=== PATIENT | male | born 1955 | race Caucasian/White ===

== ENCOUNTER 2017-07-07 17:02 | Inpatient (IN) | payer OTHER ==
[2017-07-07 18:17] LABS: BASE EXCESS ABG 2 mmol/L (-3-3); HCO3 ABG 27 mmol/L (21-28); PCO2 ABG 42 mmHg (35-46); PH ABG 7.43 (7.35-7.45); PO2 ABG 104 mmHg (65-108); SAT O2 ABG 97 % (92-99)
[2017-07-07 18:21] LABS: FIO2 ABG 32
[2017-07-07 18:27] LABS: ADD MAN DIFF? NO
[2017-07-07 18:30] LABS: BASO # 0.1 x10^3/uL (0.0-0.2); BASO % 1 % (0-3); EOS # 0.1 x10^3/uL (0.0-0.7); EOS % 1 % (0-3); HEMATOCRIT 30.2 % (39.0-53.0); HEMOGLOBIN 10.4 g/dL (13.0-17.5); LYMPH % 8 % (24-48); MEAN CORPUSCULAR HEMOGLOBIN 28 pg (25-35); MEAN CORPUSCULAR HGB CONC 34 g/dL (31-37); MEAN CORPUSCULAR VOLUME 82 fL (79-100); MONO # 1.1 x10^3/uL (0.0-1.1); MONO % 9 % (0-9); NEUT # 10.3 x10^3uL (1.8-7.7); NEUT % 82 % (31-73); PLATELET COUNT 130 x10^3/uL (140-400); RED BLOOD COUNT 3.68 x10^6/uL (4.30-5.70); RED CELL DISTRIBUTION WIDTH 13.1 % (11.5-14.5); WHITE BLOOD COUNT 12.6 x10^3/uL (4.0-11.0)
[2017-07-07 18:43] LABS: ANION GAP 9 (6-14); BLOOD UREA NITROGEN 30 mg/dL (8-26); CALCIUM 8.5 mg/dL (8.5-10.1); CARBON DIOXIDE 29 mmol/L (21-32); CHLORIDE 86 mmol/L (98-107); CREATININE 1.8 mg/dL (0.7-1.3); GFR 38.2; GLUCOSE 484 mg/dL (70-99); POTASSIUM 4.5 mmol/L (3.5-5.1); SODIUM 124 mmol/L (136-145)
[2017-07-07 18:48] LABS: ALK PHOS 95 U/L (46-116); ALT (SGPT) 10 U/L (16-63); AST (SGOT) 9 U/L (15-37); DIRECT BILIRUBIN 0.2 mg/dL (0.0-0.2); LIPASE 61 U/L (73-393); MAGNESIUM 1.4 mg/dL (1.8-2.4); TOTAL BILIRUBIN 0.6 mg/dL (0.2-1.0); TOTAL PROTEIN 7.3 g/dL (6.4-8.2)
[2017-07-07] MEDS: MORPHINE SULFATE 4 MG/ML DISP.SYRIN. IV/SQ ×2 (18:51→20:13)
[2017-07-07] MEDS: IV NORMAL SALINE 1000ML BAG 1,000 ML IV ×2 (18:51→19:45)
[2017-07-07] MEDS: 0.9 % SODIUM CHLORIDE 10 ML DISP.SYRIN. IV (18:51)
[2017-07-07 18:55] LABS: LACTIC ACID 1.4 mmol/L (0.4-2.0)
[2017-07-07 18:58] LABS: NT-PRO BNP 1924 pg/mL (0-124)
[2017-07-07 18:58] LABS: CKMB MASS 2.3 ng/mL (0.0-3.6); CREATINE KINASE 49 U/L (39-308)
[2017-07-07 18:59] LABS: C-REACTIVE PROTEIN 119.7 mg/L (0-3.3)
[2017-07-07 19:03] LABS: TROPONINI < 0.017 ng/mL (0.000-0.055)
[2017-07-07 19:06] LABS: ACETONE NEG (NEG)
[2017-07-07] MEDS ORDERED: ONDANSETRON PF 4 MG/2 ML VIAL. IV (19:30)
[2017-07-07] MEDS ORDERED: VANCOMYCIN 1GM IVPB FOR OMNI 250 ML IV (19:30)
[2017-07-07 19:33] LABS: SEDIMENTATION RATE 61 (0-15)
[2017-07-07] MEDS: MORPHINE SULFATE 4 MG/ML DISP.SYRIN. IV (20:13)
[2017-07-07] MEDS: PIPERACILLIN/TAZOBACTAM 4.5 GM in IV NORMAL SALINE 100ML 100 ML IV (20:13)
[2017-07-07] MEDS: VANCOMYCIN 2 GM in IV DEXTROSE 5 %-0.45 % NACL 500 ML IV (20:13)
[2017-07-08] MEDS: INSULIN DETEMIR 300 UNITS/3 ML INSULN.PEN. SQ ×2 (00:13→21:00)
[2017-07-08 08:07] LABS: POC GLUCOSE 120 mg/dL (70-99)
[2017-07-08] MEDS: IV NORMAL SALINE 1000ML BAG 1,000 ML IV (08:46)
[2017-07-08] MEDS: MORPHINE SULFATE 4 MG/ML DISP.SYRIN. IV (08:47)
[2017-07-08] MEDS ORDERED: ALBUTEROL SULFATE 2.5 MG/3 ML NEBU. NEB (09:30)
[2017-07-08] MEDS ORDERED: PIP/TAZO PER PHARMACY MC (09:30)
[2017-07-08] MEDS ORDERED: VANCOMYCIN PER PHARMACY MC (09:30)
[2017-07-08] MEDS: oxyCODONE/APAP 7.5/325 1 TAB TABLET PO ×2 (09:48→20:49)
[2017-07-08] MEDS: SPIRONOLACTONE 25 MG TABLET PO (09:48)
[2017-07-08] MEDS: SERTRALINE 50 MG TABLET. PO (09:49)
[2017-07-08] MEDS: CARVEDILOL 3.125 MG TABLET. PO ×2 (09:49→17:51)
[2017-07-08] MEDS: POTASSIUM CHLORIDE 20 MEQ TABLET.ER. PO (09:49)
[2017-07-08] MEDS: FUROSEMIDE 80 MG TABLET. PO ×2 (09:49→15:08)
[2017-07-08] MEDS: GABAPENTIN 100 MG CAPSULE. PO ×3 (09:49→20:49)
[2017-07-08] MEDS: OXYBUTYNIN CHLORIDE 5 MG TABLET PO ×2 (09:49→20:49)
[2017-07-08] MEDS: ASPIRIN ENTERIC COATED 81 MG TABLET.DR. PO (09:49)
[2017-07-08] MEDS: LOSARTAN POTASSIUM 50 MG TABLET. PO (09:50)
[2017-07-08] MEDS ORDERED: INSULIN DETEMIR 300 UNITS/3 ML INSULN.PEN. SQ (10:00)
[2017-07-08] MEDS ORDERED: VANCOMYCIN 2 GM in IV DEXTROSE 5 %-0.45 % NACL 500 ML IV (10:00)
[2017-07-08] MEDS: PIPERACILLIN/TAZOBACTAM 3.375 GM in IV NORMAL SALINE 50ML 50 ML IV ×3 (10:28→23:22)
[2017-07-08] MEDS: INSULIN ASPART 300 UNITS/3 ML INSULN.PEN SQ ×2 (11:30→16:30)
[2017-07-08 11:54] LABS: POC GLUCOSE 62 mg/dL (70-99)
[2017-07-08 16:53] LABS: POC GLUCOSE 51 mg/dL (70-99)
[2017-07-08 17:48] LABS: POC GLUCOSE 46 mg/dL (70-99)
[2017-07-08] MEDS: DEXTROSE 50% 25 GM / 50ML DISP.SYRIN. IV (17:50)
[2017-07-08 18:06] LABS: POC GLUCOSE 128 mg/dL (70-99)
[2017-07-08] MEDS: LACTOBACILLUS RHAMNOSUS GG 1 CAPSULE. PO (20:49)
[2017-07-08] MEDS: SIMVASTATIN 40 MG TABLET. PO (20:49)
[2017-07-08 21:01] LABS: POC GLUCOSE 114 mg/dL (70-99)
[2017-07-08 21:33] LABS: COLOR,URINE RED; PROTEIN,URINE >=300 mg/dL (NEG-TRACE)
[2017-07-08 21:58] LABS: BACTERIA,URINE 0 /HPF (0-FEW); BILIRUBIN,URINE NEGATIVE (NEG); CLARITY,URINE BLOODY; GLUCOSE,URINE NEGATIVE (NEG); NITRITE,URINE NEGATIVE (NEG); PH,URINE 7.5; RBC,URINE TNTC /HPF (0-2); UROBILINOGEN,URINE 0.2 mg/dL (0.2 mg/dL)
[2017-07-09] MEDS: PIPERACILLIN/TAZOBACTAM 3.375 GM in IV NORMAL SALINE 50ML 50 ML IV ×4 (05:06→23:31)
[2017-07-09 05:40] LABS: ADD MAN DIFF? NO
[2017-07-09 05:46] LABS: BASO # 0.1 x10^3/uL (0.0-0.2); BASO % 1 % (0-3); EOS # 0.2 x10^3/uL (0.0-0.7); EOS % 2 % (0-3); HEMATOCRIT 30.8 % (39.0-53.0); HEMOGLOBIN 10.4 g/dL (13.0-17.5); LYMPH # 1.3 x10^3/uL (1.0-4.8); LYMPH % 10 % (24-48); MEAN CORPUSCULAR HEMOGLOBIN 28 pg (25-35); MEAN CORPUSCULAR HGB CONC 34 g/dL (31-37); MEAN CORPUSCULAR VOLUME 82 fL (79-100); MONO # 1.1 x10^3/uL (0.0-1.1); MONO % 8 % (0-9); NEUT # 10.8 x10^3uL (1.8-7.7); NEUT % 80 % (31-73); PLATELET COUNT 250 x10^3/uL (140-400); RED BLOOD COUNT 3.75 x10^6/uL (4.30-5.70); RED CELL DISTRIBUTION WIDTH 12.9 % (11.5-14.5); WHITE BLOOD COUNT 13.4 x10^3/uL (4.0-11.0)
[2017-07-09 06:19] LABS: ALBUMIN 2.8 g/dL (3.4-5.0); ALBUMIN/GLOBULIN RATIO 0.6 (1.0-1.7); ALK PHOS 103 U/L (46-116); ALT (SGPT) 11 U/L (16-63); ANION GAP 7 (6-14); AST (SGOT) 16 U/L (15-37); BLOOD UREA NITROGEN 26 mg/dL (8-26); BUN/CREATININE RATIO 17 (6-20); CALCIUM 8.9 mg/dL (8.5-10.1); CARBON DIOXIDE 34 mmol/L (21-32); CHLORIDE 91 mmol/L (98-107); CREATININE 1.5 mg/dL (0.7-1.3); GFR 47.1; GLUCOSE 73 mg/dL (70-99); POTASSIUM 3.4 mmol/L (3.5-5.1); SODIUM 132 mmol/L (136-145); TOTAL BILIRUBIN 0.5 mg/dL (0.2-1.0); TOTAL PROTEIN 7.3 g/dL (6.4-8.2)
[2017-07-09] MEDS: oxyCODONE/APAP 7.5/325 1 TAB TABLET PO ×2 (06:37→20:47)
[2017-07-09 06:50] LABS: INR 6.1 (0.8-1.1)
[2017-07-09] MEDS: ASPIRIN ENTERIC COATED 81 MG TABLET.DR. PO (07:08)
[2017-07-09] MEDS: INSULIN ASPART 300 UNITS/3 ML INSULN.PEN SQ ×3 (07:30→16:30)
[2017-07-09 07:46] LABS: POC GLUCOSE 99 mg/dL (70-99)
[2017-07-09] MEDS ORDERED: ONDANSETRON ODT 4 MG TAB.RAPDIS. PO (08:15)
[2017-07-09] MEDS: LOSARTAN POTASSIUM 50 MG TABLET. PO ×2 (09:00→09:21)
[2017-07-09] MEDS: OXYBUTYNIN CHLORIDE 5 MG TABLET PO ×2 (09:21→20:47)
[2017-07-09] MEDS: SERTRALINE 50 MG TABLET. PO (09:21)
[2017-07-09] MEDS: POTASSIUM CHLORIDE 20 MEQ TABLET.ER. PO (09:21)
[2017-07-09] MEDS: LACTOBACILLUS RHAMNOSUS GG 1 CAPSULE. PO ×2 (09:21→20:47)
[2017-07-09] MEDS: SPIRONOLACTONE 25 MG TABLET PO (09:21)
[2017-07-09] MEDS: FUROSEMIDE 80 MG TABLET. PO ×2 (09:21→14:36)
[2017-07-09] MEDS: GABAPENTIN 100 MG CAPSULE. PO ×3 (09:22→20:47)
[2017-07-09] MEDS: CARVEDILOL 3.125 MG TABLET. PO ×2 (09:22→17:00)
[2017-07-09 11:47] LABS: POC GLUCOSE 218 mg/dL (70-99)
[2017-07-09] MEDS: TAMSULOSIN 0.4 MG CAP.ER.24H. PO (12:04)
[2017-07-09] MEDS: PHYTONADIONE 10 MG/ML AMPUL. SQ (12:05)
[2017-07-09 16:40] LABS: POC GLUCOSE 136 mg/dL (70-99)
[2017-07-09 20:41] LABS: POC GLUCOSE 136 mg/dL (70-99)
[2017-07-09] MEDS: SIMVASTATIN 40 MG TABLET. PO (20:47)
[2017-07-09] MEDS: INSULIN DETEMIR 300 UNITS/3 ML INSULN.PEN. SQ (21:00)
[2017-07-10] MEDS: oxyCODONE/APAP 7.5/325 1 TAB TABLET PO ×3 (02:33→20:04)
[2017-07-10] MEDS: PIPERACILLIN/TAZOBACTAM 3.375 GM in IV NORMAL SALINE 50ML 50 ML IV ×4 (05:41→23:36)
[2017-07-10 05:44] LABS: ANION GAP 8 (6-14); BLOOD UREA NITROGEN 19 mg/dL (8-26); CALCIUM 8.1 mg/dL (8.5-10.1); CARBON DIOXIDE 32 mmol/L (21-32); CHLORIDE 87 mmol/L (98-107); CREATININE 1.2 mg/dL (0.7-1.3); GLUCOSE 186 mg/dL (70-99); PHOSPHORUS 3.7 mg/dL (2.6-4.7); POTASSIUM 3.7 mmol/L (3.5-5.1); SODIUM 127 mmol/L (136-145)
[2017-07-10 06:05] LABS: INR 2.3 (0.8-1.1); PROTHROMBIN TIME PATIENT 24.6 SEC (11.7-14.0)
[2017-07-10 08:29] LABS: POC GLUCOSE 215 mg/dL (70-99)
[2017-07-10] MEDS: FUROSEMIDE 80 MG TABLET. PO ×2 (08:35→13:20)
[2017-07-10] MEDS: GABAPENTIN 100 MG CAPSULE. PO ×3 (08:35→20:03)
[2017-07-10] MEDS: LACTOBACILLUS RHAMNOSUS GG 1 CAPSULE. PO ×2 (08:35→20:03)
[2017-07-10] MEDS: SPIRONOLACTONE 25 MG TABLET PO (08:35)
[2017-07-10] MEDS: POTASSIUM CHLORIDE 20 MEQ TABLET.ER. PO (08:36)
[2017-07-10] MEDS: TAMSULOSIN 0.4 MG CAP.ER.24H. PO (08:36)
[2017-07-10] MEDS: OXYBUTYNIN CHLORIDE 5 MG TABLET PO ×2 (08:36→20:03)
[2017-07-10] MEDS: LOSARTAN POTASSIUM 50 MG TABLET. PO (08:36)
[2017-07-10] MEDS: SERTRALINE 50 MG TABLET. PO (08:36)
[2017-07-10] MEDS: CARVEDILOL 3.125 MG TABLET. PO ×3 (08:37→17:05)
[2017-07-10] MEDS: INSULIN ASPART 300 UNITS/3 ML INSULN.PEN SQ ×3 (08:41→17:14)
[2017-07-10] MEDS: NEOMY/BACITR/POLYMYXIN OINT PACKET. TP (11:00)
[2017-07-10 11:35] LABS: POC GLUCOSE 293 mg/dL (70-99)
[2017-07-10] MEDS: MAGNESIUM OXIDE 400 MG TABLET PO ×2 (12:05→20:03)
[2017-07-10] MEDS: IV NORMAL SALINE 1000ML BAG 1,000 ML IV ×2 (12:05→20:06)
[2017-07-10] MEDS: ASCORBIC ACID 500 MG TABLET PO (12:05)
[2017-07-10] MEDS: MAGNESIUM SULFATE 4GM 100 ML IV (13:21)
[2017-07-10 16:39] LABS: POC GLUCOSE 297 mg/dL (70-99)
[2017-07-10] MEDS: MORPHINE SULFATE 4 MG/ML DISP.SYRIN. IV (17:05)
[2017-07-10] MEDS: ONDANSETRON PF 4 MG/2 ML VIAL. IV (18:25)
[2017-07-10] MEDS: SIMVASTATIN 40 MG TABLET. PO (20:04)
[2017-07-10 20:25] LABS: POC GLUCOSE 229 mg/dL (70-99)
[2017-07-10] MEDS: INSULIN DETEMIR 300 UNITS/3 ML INSULN.PEN. SQ (20:32)
[2017-07-11] MEDS: oxyCODONE/APAP 7.5/325 1 TAB TABLET PO ×2 (05:05→13:59)
[2017-07-11] MEDS: PIPERACILLIN/TAZOBACTAM 3.375 GM in IV NORMAL SALINE 50ML 50 ML IV ×4 (05:06→23:36)
[2017-07-11 05:09] LABS: ADD MAN DIFF? NO
[2017-07-11] MEDS: IV NORMAL SALINE 1000ML BAG 1,000 ML IV ×2 (05:09→17:14)
[2017-07-11 05:21] LABS: BASO # 0.1 x10^3/uL (0.0-0.2); BASO % 0 % (0-3); EOS # 0.2 x10^3/uL (0.0-0.7); EOS % 2 % (0-3); HEMATOCRIT 23.9 % (39.0-53.0); LYMPH # 1.1 x10^3/uL (1.0-4.8); LYMPH % 8 % (24-48); MEAN CORPUSCULAR HEMOGLOBIN 27 pg (25-35); MEAN CORPUSCULAR HGB CONC 33 g/dL (31-37); MEAN CORPUSCULAR VOLUME 82 fL (79-100); MONO # 0.9 x10^3/uL (0.0-1.1); MONO % 7 % (0-9); NEUT % 83 % (31-73); PLATELET COUNT 200 x10^3/uL (140-400); WHITE BLOOD COUNT 13.3 x10^3/uL (4.0-11.0)
[2017-07-11 05:31] LABS: INR 1.4 (0.8-1.1); PROTHROMBIN TIME PATIENT 16.4 SEC (11.7-14.0)
[2017-07-11 05:44] LABS: ANION GAP 2 (6-14); BLOOD UREA NITROGEN 15 mg/dL (8-26); CALCIUM 8.5 mg/dL (8.5-10.1); CARBON DIOXIDE 37 mmol/L (21-32); CHLORIDE 92 mmol/L (98-107); CREATININE 1.2 mg/dL (0.7-1.3); GLUCOSE 213 mg/dL (70-99); MAGNESIUM 1.8 mg/dL (1.8-2.4); POTASSIUM 3.8 mmol/L (3.5-5.1); SODIUM 131 mmol/L (136-145)
[2017-07-11 07:36] LABS: THYROID STIM HORMONE (TSH) 2.629 uIU/mL (0.358-3.74)
[2017-07-11] MEDS: CARVEDILOL 3.125 MG TABLET. PO ×2 (08:00→17:14)
[2017-07-11 08:02] LABS: POC GLUCOSE 150 mg/dL (70-99)
[2017-07-11] MEDS: LACTOBACILLUS RHAMNOSUS GG 1 CAPSULE. PO ×2 (08:11→20:52)
[2017-07-11] MEDS: OXYBUTYNIN CHLORIDE 5 MG TABLET PO ×2 (08:11→20:52)
[2017-07-11] MEDS: TAMSULOSIN 0.4 MG CAP.ER.24H. PO (08:11)
[2017-07-11] MEDS: LOSARTAN POTASSIUM 50 MG TABLET. PO (08:11)
[2017-07-11] MEDS: ASCORBIC ACID 500 MG TABLET PO (08:11)
[2017-07-11] MEDS: GABAPENTIN 100 MG CAPSULE. PO ×3 (08:11→20:52)
[2017-07-11] MEDS: FUROSEMIDE 80 MG TABLET. PO ×2 (08:12→13:59)
[2017-07-11] MEDS: POTASSIUM CHLORIDE 20 MEQ TABLET.ER. PO (08:12)
[2017-07-11] MEDS: MAGNESIUM OXIDE 400 MG TABLET PO ×2 (08:12→20:53)
[2017-07-11] MEDS: SPIRONOLACTONE 25 MG TABLET PO (08:13)
[2017-07-11] MEDS: INSULIN ASPART 300 UNITS/3 ML INSULN.PEN SQ ×3 (08:19→17:18)
[2017-07-11] MEDS: SERTRALINE 50 MG TABLET. PO (09:43)
[2017-07-11] MEDS ORDERED: CONTRAST GIVEN MC (11:15)
[2017-07-11] MEDS: IOHEXOL 300 MG/ML 100ML VIAL. IV (11:27)
[2017-07-11 12:01] LABS: POC GLUCOSE 155 mg/dL (70-99)
[2017-07-11 16:54] LABS: POC GLUCOSE 144 mg/dL (70-99)
[2017-07-11 20:42] LABS: POC GLUCOSE 115 mg/dL (70-99)
[2017-07-11] MEDS: SIMVASTATIN 40 MG TABLET. PO (20:53)
[2017-07-11] MEDS: INSULIN DETEMIR 300 UNITS/3 ML INSULN.PEN. SQ (20:58)
[2017-07-12 03:29] LABS: ADD MAN DIFF? NO
[2017-07-12 03:38] LABS: BASO # 0.1 x10^3/uL (0.0-0.2); BASO % 0 % (0-3); EOS # 0.2 x10^3/uL (0.0-0.7); EOS % 1 % (0-3); HEMATOCRIT 24.9 % (39.0-53.0); HEMOGLOBIN 8.3 g/dL (13.0-17.5); LYMPH # 1.3 x10^3/uL (1.0-4.8); LYMPH % 9 % (24-48); MEAN CORPUSCULAR HEMOGLOBIN 27 pg (25-35); MEAN CORPUSCULAR HGB CONC 33 g/dL (31-37); MEAN CORPUSCULAR VOLUME 82 fL (79-100); MONO # 1.1 x10^3/uL (0.0-1.1); MONO % 8 % (0-9); NEUT # 11.6 x10^3uL (1.8-7.7); NEUT % 82 % (31-73); PLATELET COUNT 170 x10^3/uL (140-400); RED BLOOD COUNT 3.02 x10^6/uL (4.30-5.70); RED CELL DISTRIBUTION WIDTH 12.9 % (11.5-14.5); WHITE BLOOD COUNT 14.2 x10^3/uL (4.0-11.0)
[2017-07-12 03:48] LABS: ANION GAP 3 (6-14); BLOOD UREA NITROGEN 13 mg/dL (8-26); CALCIUM 8.3 mg/dL (8.5-10.1); CARBON DIOXIDE 35 mmol/L (21-32); CHLORIDE 92 mmol/L (98-107); CREATININE 1.1 mg/dL (0.7-1.3); GFR 67.4; GLUCOSE 174 mg/dL (70-99); MAGNESIUM 1.4 mg/dL (1.8-2.4); POTASSIUM 3.6 mmol/L (3.5-5.1); SODIUM 130 mmol/L (136-145)
[2017-07-12] MEDS: IV NORMAL SALINE 1000ML BAG 1,000 ML IV ×3 (05:15→23:21)
[2017-07-12] MEDS: PIPERACILLIN/TAZOBACTAM 3.375 GM in IV NORMAL SALINE 50ML 50 ML IV ×4 (05:15→23:21)
[2017-07-12] MEDS ORDERED: MORPHINE SULFATE 4 MG/ML DISP.SYRIN. IV (07:00)
[2017-07-12] MEDS ORDERED: fentaNYL PF VIAL 100 MCG/2 ML VIAL IV ×2 (07:00)
[2017-07-12] MEDS ORDERED: ONDANSETRON PF 4 MG/2 ML VIAL. IV (07:00)
[2017-07-12] MEDS: IV RINGERS,LACTATED 1000ML 1,000 ML IV (07:00)
[2017-07-12] MEDS ORDERED: LIDOCAINE 1% PF 2 ML VIAL. ID (07:00)
[2017-07-12] MEDS ORDERED: PROCHLORPERAZINE 10 MG/2 ML VIAL. IV (07:00)
[2017-07-12] MEDS ORDERED: LIDOCAINE 1% PF 5 ML VIAL. (07:02)
[2017-07-12] MEDS ORDERED: fentaNYL PF VIAL 100 MCG/2 ML VIAL (07:02)
[2017-07-12] MEDS ORDERED: PROPOFOL 20 ML IV (07:02)
[2017-07-12] MEDS: INSULIN ASPART 300 UNITS/3 ML INSULN.PEN SQ ×3 (07:30→17:10)
[2017-07-12 07:39] LABS: POC GLUCOSE 81 mg/dL (70-99)
[2017-07-12] MEDS: LIDOCAINE 1% 20 ML VIAL. ×2 (08:06→08:17)
[2017-07-12 08:41] LABS: POC GLUCOSE 69 mg/dL (70-99)
[2017-07-12 09:44] LABS: POC GLUCOSE 54 mg/dL (70-99)
[2017-07-12] MEDS: DEXTROSE 50% 25 GM / 50ML DISP.SYRIN. IV (09:44)
[2017-07-12 10:02] LABS: POC GLUCOSE 128 mg/dL (70-99)
[2017-07-12] MEDS: ASCORBIC ACID 500 MG TABLET PO (10:11)
[2017-07-12] MEDS: LACTOBACILLUS RHAMNOSUS GG 1 CAPSULE. PO ×2 (10:11→20:48)
[2017-07-12] MEDS: GABAPENTIN 100 MG CAPSULE. PO ×3 (10:12→20:48)
[2017-07-12] MEDS: OXYBUTYNIN CHLORIDE 5 MG TABLET PO ×2 (10:13→20:48)
[2017-07-12] MEDS: LOSARTAN POTASSIUM 50 MG TABLET. PO (10:13)
[2017-07-12] MEDS: SPIRONOLACTONE 25 MG TABLET PO (10:13)
[2017-07-12] MEDS: CARVEDILOL 3.125 MG TABLET. PO ×2 (10:14→17:03)
[2017-07-12] MEDS: FUROSEMIDE 80 MG TABLET. PO ×2 (10:14→17:03)
[2017-07-12] MEDS: TAMSULOSIN 0.4 MG CAP.ER.24H. PO (10:14)
[2017-07-12] MEDS: MAGNESIUM OXIDE 400 MG TABLET PO ×2 (10:14→20:48)
[2017-07-12] MEDS: SERTRALINE 50 MG TABLET. PO (10:14)
[2017-07-12] MEDS: POTASSIUM CHLORIDE 20 MEQ TABLET.ER. PO (10:15)
[2017-07-12 12:23] LABS: POC GLUCOSE 168 mg/dL (70-99)
[2017-07-12] MEDS: MAGNESIUM SULFATE 2GM 50 ML IV (12:32)
[2017-07-12] MEDS: oxyCODONE/APAP 7.5/325 1 TAB TABLET PO (12:54)
[2017-07-12 17:12] LABS: POC GLUCOSE 163 mg/dL (70-99)
[2017-07-12] MEDS: SIMVASTATIN 40 MG TABLET. PO (20:48)
[2017-07-12] MEDS: INSULIN DETEMIR 300 UNITS/3 ML INSULN.PEN. SQ (20:57)
[2017-07-12 21:12] LABS: POC GLUCOSE 178 mg/dL (70-99)
[2017-07-13 04:29] LABS: ADD MAN DIFF? NO
[2017-07-13 04:33] LABS: BASO # 0.1 x10^3/uL (0.0-0.2); BASO % 1 % (0-3); EOS # 0.2 x10^3/uL (0.0-0.7); EOS % 2 % (0-3); HEMATOCRIT 21.2 % (39.0-53.0); HEMOGLOBIN 7.2 g/dL (13.0-17.5); LYMPH # 1.2 x10^3/uL (1.0-4.8); LYMPH % 10 % (24-48); MEAN CORPUSCULAR HEMOGLOBIN 28 pg (25-35); MEAN CORPUSCULAR HGB CONC 34 g/dL (31-37); MEAN CORPUSCULAR VOLUME 82 fL (79-100); MONO # 0.9 x10^3/uL (0.0-1.1); MONO % 7 % (0-9); NEUT # 9.9 x10^3uL (1.8-7.7); NEUT % 81 % (31-73); PLATELET COUNT 148 x10^3/uL (140-400); RED BLOOD COUNT 2.58 x10^6/uL (4.30-5.70); RED CELL DISTRIBUTION WIDTH 12.7 % (11.5-14.5); WHITE BLOOD COUNT 12.2 x10^3/uL (4.0-11.0)
[2017-07-13 04:51] LABS: ANION GAP 6 (6-14); BLOOD UREA NITROGEN 11 mg/dL (8-26); CALCIUM 8.1 mg/dL (8.5-10.1); CARBON DIOXIDE 34 mmol/L (21-32); CHLORIDE 93 mmol/L (98-107); GFR 75.2; GLUCOSE 136 mg/dL (70-99); MAGNESIUM 1.3 mg/dL (1.8-2.4); PHOSPHORUS 2.7 mg/dL (2.6-4.7); POTASSIUM 3.1 mmol/L (3.5-5.1); SODIUM 133 mmol/L (136-145)
[2017-07-13] MEDS: PIPERACILLIN/TAZOBACTAM 3.375 GM in IV NORMAL SALINE 50ML 50 ML IV ×4 (05:47→23:40)
[2017-07-13] MEDS: INSULIN ASPART 300 UNITS/3 ML INSULN.PEN SQ ×3 (07:30→17:28)
[2017-07-13] MEDS: DEXTROSE 50% 25 GM / 50ML DISP.SYRIN. IV (07:43)
[2017-07-13 08:25] LABS: POC GLUCOSE 133 mg/dL (70-99)
[2017-07-13 08:25] LABS: POC GLUCOSE 68 mg/dL (70-99)
[2017-07-13] MEDS: TAMSULOSIN 0.4 MG CAP.ER.24H. PO (08:26)
[2017-07-13] MEDS: POTASSIUM CHLORIDE 20 MEQ TABLET.ER. PO (08:26)
[2017-07-13] MEDS: SERTRALINE 50 MG TABLET. PO (08:27)
[2017-07-13] MEDS: ASCORBIC ACID 500 MG TABLET PO (08:28)
[2017-07-13] MEDS: FUROSEMIDE 80 MG TABLET. PO ×2 (08:28→14:05)
[2017-07-13] MEDS: LACTOBACILLUS RHAMNOSUS GG 1 CAPSULE. PO ×2 (08:28→20:40)
[2017-07-13] MEDS: CARVEDILOL 3.125 MG TABLET. PO ×2 (08:29→17:27)
[2017-07-13] MEDS: OXYBUTYNIN CHLORIDE 5 MG TABLET PO ×2 (08:29→20:40)
[2017-07-13] MEDS: MAGNESIUM OXIDE 400 MG TABLET PO ×2 (08:30→20:40)
[2017-07-13] MEDS: SPIRONOLACTONE 25 MG TABLET PO (08:30)
[2017-07-13] MEDS: LOSARTAN POTASSIUM 50 MG TABLET. PO (08:31)
[2017-07-13] MEDS: GABAPENTIN 100 MG CAPSULE. PO ×3 (08:32→20:40)
[2017-07-13] MEDS: IV NORMAL SALINE 1000ML BAG 1,000 ML IV ×2 (08:33→19:00)
[2017-07-13] MEDS: POTASSIUM CHLORIDE IV (11:00)
[2017-07-13] MEDS: 1/2 NORMAL SALINE IV (11:00)
[2017-07-13] MEDS: VANCOMYCIN 1 GM in IV DEXTROSE 5% 250 ML IV ×2 (11:31→15:26)
[2017-07-13] MEDS: MAGNESIUM SULFATE 2GM 50 ML IV (11:31)
[2017-07-13 11:55] LABS: POC GLUCOSE 188 mg/dL (70-99)
[2017-07-13 14:00] LABS: % SAT IRON 18 % (15-34); IRON,SERUM 28 ug/dL (65-175)
[2017-07-13] MEDS: POTASSIUM CHLORIDE 20 MEQ in IV DEXTROSE 5 %-0.2 % NACL 250 ML IV (14:06)
[2017-07-13] MEDS ORDERED: VANCOMYCIN PER PHARMACY MC (14:45)
[2017-07-13] MEDS ORDERED: VANCOMYCIN 1.5 GM in IV 1/2 NORMAL SALINE 500 ML IV (16:30)
[2017-07-13] MEDS: VANCOMYCIN PER PHARMACY MC (16:32)
[2017-07-13 17:04] LABS: POC GLUCOSE 217 mg/dL (70-99)
[2017-07-13] MEDS: oxyCODONE/APAP 7.5/325 1 TAB TABLET PO (17:26)
[2017-07-13] MEDS: SIMVASTATIN 40 MG TABLET. PO (20:40)
[2017-07-13] MEDS: INSULIN DETEMIR 300 UNITS/3 ML INSULN.PEN. SQ (20:43)
[2017-07-13 20:58] LABS: POC GLUCOSE 202 mg/dL (70-99)
[2017-07-13 21:00] LABS: POC GLUCOSE 188 mg/dL (70-99)
[2017-07-14] MEDS: IV NORMAL SALINE 1000ML BAG 1,000 ML IV ×2 (01:44→15:29)
[2017-07-14] MEDS: VANCOMYCIN 1.5 GM in IV 1/2 NORMAL SALINE 500 ML IV ×2 (02:30→16:41)
[2017-07-14] MEDS: PIPERACILLIN/TAZOBACTAM 3.375 GM in IV NORMAL SALINE 50ML 50 ML IV ×4 (05:40→23:59)
[2017-07-14] MEDS: INSULIN ASPART 300 UNITS/3 ML INSULN.PEN SQ ×3 (07:30→16:51)
[2017-07-14 08:03] LABS: POC GLUCOSE 43 mg/dL (70-99)
[2017-07-14] MEDS: GABAPENTIN 100 MG CAPSULE. PO ×3 (08:49→21:34)
[2017-07-14] MEDS: POTASSIUM CHLORIDE 20 MEQ TABLET.ER. PO ×3 (08:50→21:34)
[2017-07-14] MEDS: ASCORBIC ACID 500 MG TABLET PO (08:50)
[2017-07-14] MEDS: OXYBUTYNIN CHLORIDE 5 MG TABLET PO ×2 (08:50→21:34)
[2017-07-14] MEDS: TAMSULOSIN 0.4 MG CAP.ER.24H. PO (08:50)
[2017-07-14] MEDS: MAGNESIUM OXIDE 400 MG TABLET PO ×2 (08:50→21:34)
[2017-07-14] MEDS: LACTOBACILLUS RHAMNOSUS GG 1 CAPSULE. PO ×2 (08:50→21:34)
[2017-07-14] MEDS: SERTRALINE 50 MG TABLET. PO (08:50)
[2017-07-14] MEDS: FUROSEMIDE 80 MG TABLET. PO ×2 (08:50→14:07)
[2017-07-14] MEDS: CARVEDILOL 3.125 MG TABLET. PO ×2 (08:50→16:48)
[2017-07-14] MEDS: SPIRONOLACTONE 25 MG TABLET PO (08:51)
[2017-07-14] MEDS: LOSARTAN POTASSIUM 50 MG TABLET. PO (08:51)
[2017-07-14 08:52] LABS: ADD MAN DIFF? NO
[2017-07-14 08:55] LABS: BASO # 0.1 x10^3/uL (0.0-0.2); BASO % 1 % (0-3); EOS # 0.2 x10^3/uL (0.0-0.7); EOS % 2 % (0-3); HEMATOCRIT 23.5 % (39.0-53.0); LYMPH # 0.9 x10^3/uL (1.0-4.8); LYMPH % 8 % (24-48); MEAN CORPUSCULAR HEMOGLOBIN 28 pg (25-35); MEAN CORPUSCULAR HGB CONC 34 g/dL (31-37); MEAN CORPUSCULAR VOLUME 83 fL (79-100); MONO # 0.7 x10^3/uL (0.0-1.1); MONO % 7 % (0-9); NEUT % 83 % (31-73); PLATELET COUNT 140 x10^3/uL (140-400); RED BLOOD COUNT 2.84 x10^6/uL (4.30-5.70); WHITE BLOOD COUNT 10.9 x10^3/uL (4.0-11.0)
[2017-07-14 09:21] LABS: ANION GAP 8 (6-14); BLOOD UREA NITROGEN 9 mg/dL (8-26); CALCIUM 7.9 mg/dL (8.5-10.1); CARBON DIOXIDE 33 mmol/L (21-32); CHLORIDE 95 mmol/L (98-107); CREATININE 0.8 mg/dL (0.7-1.3); GFR 97.3; GLUCOSE 50 mg/dL (70-99); MAGNESIUM 1.5 mg/dL (1.8-2.4); PHOSPHORUS 2.5 mg/dL (2.6-4.7); POTASSIUM 3.1 mmol/L (3.5-5.1); SODIUM 136 mmol/L (136-145)
[2017-07-14 12:04] LABS: POC GLUCOSE 99 mg/dL (70-99)
[2017-07-14] MEDS: MAGNESIUM SULFATE 2GM 50 ML IV (12:34)
[2017-07-14] MEDS: POTASSIUM PHOSPHATE DIBASIC 13.6 MMOL in IV DEXTROSE 5% 100 ML IV ×2 (14:07→15:25)
[2017-07-14 16:21] LABS: POC GLUCOSE 156 mg/dL (70-99)
[2017-07-14] MEDS: VANCOMYCIN PER PHARMACY MC (16:47)
[2017-07-14 20:37] LABS: POC GLUCOSE 262 mg/dL (70-99)
[2017-07-14] MEDS: SIMVASTATIN 40 MG TABLET. PO (21:34)
[2017-07-14] MEDS: INSULIN DETEMIR 300 UNITS/3 ML INSULN.PEN. SQ (21:49)
[2017-07-15] MEDS: IV NORMAL SALINE 1000ML BAG 1,000 ML IV ×2 (01:00→08:51)
[2017-07-15 03:58] LABS: ANION GAP 6 (6-14); BLOOD UREA NITROGEN 11 mg/dL (8-26); CALCIUM 7.8 mg/dL (8.5-10.1); CARBON DIOXIDE 32 mmol/L (21-32); CHLORIDE 92 mmol/L (98-107); CREATININE 0.9 mg/dL (0.7-1.3); GLUCOSE 194 mg/dL (70-99); MAGNESIUM 1.7 mg/dL (1.8-2.4); SODIUM 130 mmol/L (136-145)
[2017-07-15 03:59] LABS: VANC TR 25.8 mcg/mL (10.0-20.0)
[2017-07-15 04:01] LABS: POTASSIUM 4.3 mmol/L (3.5-5.1)
[2017-07-15] MEDS: VANCOMYCIN PER PHARMACY MC (05:36)
[2017-07-15] MEDS: PIPERACILLIN/TAZOBACTAM 3.375 GM in IV NORMAL SALINE 50ML 50 ML IV ×2 (06:20→12:02)
[2017-07-15] MEDS: oxyCODONE/APAP 7.5/325 1 TAB TABLET PO ×3 (06:23→13:42)
[2017-07-15 08:05] LABS: POC GLUCOSE 118 mg/dL (70-99)
[2017-07-15] MEDS: VANCOMYCIN 1.5 GM in IV 1/2 NORMAL SALINE 500 ML IV (08:50)
[2017-07-15] MEDS: MAGNESIUM OXIDE 400 MG TABLET PO (08:51)
[2017-07-15] MEDS: FUROSEMIDE 80 MG TABLET. PO ×2 (08:51→13:42)
[2017-07-15] MEDS: LACTOBACILLUS RHAMNOSUS GG 1 CAPSULE. PO (08:51)
[2017-07-15] MEDS: OXYBUTYNIN CHLORIDE 5 MG TABLET PO (08:51)
[2017-07-15] MEDS: TAMSULOSIN 0.4 MG CAP.ER.24H. PO (08:52)
[2017-07-15] MEDS: SPIRONOLACTONE 25 MG TABLET PO (08:52)
[2017-07-15] MEDS: LOSARTAN POTASSIUM 50 MG TABLET. PO (08:52)
[2017-07-15] MEDS: POTASSIUM CHLORIDE 20 MEQ TABLET.ER. PO (08:52)
[2017-07-15] MEDS: GABAPENTIN 100 MG CAPSULE. PO ×2 (08:53→13:42)
[2017-07-15] MEDS: SERTRALINE 50 MG TABLET. PO (08:53)
[2017-07-15] MEDS: ASCORBIC ACID 500 MG TABLET PO (08:53)
[2017-07-15] MEDS: CARVEDILOL 3.125 MG TABLET. PO (08:53)
[2017-07-15] MEDS: INSULIN ASPART 300 UNITS/3 ML INSULN.PEN SQ ×2 (09:05→12:11)
[2017-07-15 11:27] LABS: POC GLUCOSE 133 mg/dL (70-99)
[2017-07-15] MEDS: LINEZOLID 600 MG TABLET PO (13:42)
== END 2017-07-15 17:04 | DRG 981 ==
LOC: ER 17:02 → 5 NORTH 19:46
PROC: 0KBW0ZZ Excision of Left Foot Muscle, Open Approach (ICD-10-PCS; principal; 2017-07-12 07:30)
PROC: 02HV33Z Insertion of Infusion Device into Superior Vena Cava, Percutaneous Approach (ICD-10-PCS; 2017-07-12 07:51)
PROC: B548ZZA Ultrasonography of Superior Vena Cava, Guidance (ICD-10-PCS; 2017-07-12 07:51)
DX: E11.52 Type 2 diabetes mellitus with diabetic peripheral angiopathy with gangrene (principal); N17.0 Acute kidney failure with tubular necrosis; I96 Gangrene, not elsewhere classified; E11.22 Type 2 diabetes mellitus with diabetic chronic kidney disease; I13.0 Hypertensive heart and chronic kidney disease with heart failure and stage 1 through stage 4 chronic kidney disease, or unspecified chronic kidney disease; E11.621 Type 2 diabetes mellitus with foot ulcer; L03.116 Cellulitis of left lower limb; I50.32 Chronic diastolic (congestive) heart failure; E83.42 Hypomagnesemia; L97.429 Non-pressure chronic ulcer of left heel and midfoot with unspecified severity; N18.4 Chronic kidney disease, stage 4 (severe); E87.1 Hypo-osmolality and hyponatremia; N13.30 Unspecified hydronephrosis; L97.509 Non-pressure chronic ulcer of other part of unspecified foot with unspecified severity; I48.2 Chronic atrial fibrillation; G40.909 Epilepsy, unspecified, not intractable, without status epilepticus; D64.9 Anemia, unspecified; C67.9 Malignant neoplasm of bladder, unspecified; E11.628 Type 2 diabetes mellitus with other skin complications; E11.65 Type 2 diabetes mellitus with hyperglycemia; R09.02 Hypoxemia; I25.10 Atherosclerotic heart disease of native coronary artery without angina pectoris; E78.00 Pure hypercholesterolemia, unspecified; E66.9 Obesity, unspecified; Z68.33 Body mass index [BMI] 33.0-33.9, adult; R79.1 Abnormal coagulation profile; T45.515A Adverse effect of anticoagulants, initial encounter; R31.0 Gross hematuria; Z99.81 Dependence on supplemental oxygen; G47.33 Obstructive sleep apnea (adult) (pediatric); Z79.4 Long term (current) use of insulin; I87.8 Other specified disorders of veins; J44.9 Chronic obstructive pulmonary disease, unspecified; N32.89 Other specified disorders of bladder; N62 Hypertrophy of breast; N39.41 Urge incontinence; Z82.49 Family history of ischemic heart disease and other diseases of the circulatory system; Z95.0 Presence of cardiac pacemaker
CPT/HCPCS: 36415; 36569; 36600; 73630; 73700; 74178; 76770; 80048; 80053; 80076; 80202; 81001; 82010; 82553; 82805; 82962; 83540; 83550; 83605; 83690; 83735; 83880; 84100; 84443; 84484; 85025; 85610; 85651; 86140; 87040; 87071; 87075; 87086; 87205; 93005; 93880; 93926; 96361; 96365; 96366; 96368; 96375; 96376; 97110-GP; 97161-GP; 97166-GO; 97530-GO; 97530-GP; 97535-GO; 99285; 99285-25; J0690; J1815; J2020; J2270; J2405; J2543; J2704; J3010; J3370; J3430; J3475; J7030; J7040; J7042; Q9967

== ENCOUNTER → 2017-07-18 | Outpatient (CLI) | payer OTHER | END | disposition home or self-care (01) | LOC: PMGWOUND 09:09 | DX: E11.621 Type 2 diabetes mellitus with foot ulcer (principal); L97.423 Non-pressure chronic ulcer of left heel and midfoot with necrosis of muscle; J44.9 Chronic obstructive pulmonary disease, unspecified; E66.9 Obesity, unspecified; E11.52 Type 2 diabetes mellitus with diabetic peripheral angiopathy with gangrene; I48.2 Chronic atrial fibrillation; E11.22 Type 2 diabetes mellitus with diabetic chronic kidney disease; I13.0 Hypertensive heart and chronic kidney disease with heart failure and stage 1 through stage 4 chronic kidney disease, or unspecified chronic kidney disease; N18.4 Chronic kidney disease, stage 4 (severe); I50.32 Chronic diastolic (congestive) heart failure; I25.10 Atherosclerotic heart disease of native coronary artery without angina pectoris; E78.00 Pure hypercholesterolemia, unspecified; I96 Gangrene, not elsewhere classified; G47.33 Obstructive sleep apnea (adult) (pediatric); Z99.2 Dependence on renal dialysis; Z79.4 Long term (current) use of insulin | CPT/HCPCS: 97597; 97605 ==

== ENCOUNTER → 2017-09-05 | Outpatient (CLI) | payer OTHER | END | disposition home or self-care (01) | LOC: PMGWOUND 11:10 | DX: E11.621 Type 2 diabetes mellitus with foot ulcer (principal); L97.423 Non-pressure chronic ulcer of left heel and midfoot with necrosis of muscle; E11.65 Type 2 diabetes mellitus with hyperglycemia; E11.22 Type 2 diabetes mellitus with diabetic chronic kidney disease; I13.0 Hypertensive heart and chronic kidney disease with heart failure and stage 1 through stage 4 chronic kidney disease, or unspecified chronic kidney disease; N18.4 Chronic kidney disease, stage 4 (severe); I50.32 Chronic diastolic (congestive) heart failure; E11.40 Type 2 diabetes mellitus with diabetic neuropathy, unspecified; E11.52 Type 2 diabetes mellitus with diabetic peripheral angiopathy with gangrene; I96 Gangrene, not elsewhere classified; F03.90 Unspecified dementia, unspecified severity, without behavioral disturbance, psychotic disturbance, mood disturbance, and anxiety; J44.9 Chronic obstructive pulmonary disease, unspecified; I48.91 Unspecified atrial fibrillation; E78.5 Hyperlipidemia, unspecified; E66.9 Obesity, unspecified; J96.10 Chronic respiratory failure, unspecified whether with hypoxia or hypercapnia; F41.9 Anxiety disorder, unspecified; I25.10 Atherosclerotic heart disease of native coronary artery without angina pectoris; K21.9 Gastro-esophageal reflux disease without esophagitis; F32.9 Major depressive disorder, single episode, unspecified; M19.90 Unspecified osteoarthritis, unspecified site; E78.00 Pure hypercholesterolemia, unspecified; G47.33 Obstructive sleep apnea (adult) (pediatric); Z99.2 Dependence on renal dialysis; Z85.51 Personal history of malignant neoplasm of bladder; Z79.4 Long term (current) use of insulin; Z68.35 Body mass index [BMI] 35.0-35.9, adult | CPT/HCPCS: 97605 ==

== ENCOUNTER → 2017-10-10 | Outpatient (CLI) | payer OTHER | END | disposition home or self-care (01) | LOC: PMGWOUND 11:34 | DX: E11.621 Type 2 diabetes mellitus with foot ulcer (principal); L97.423 Non-pressure chronic ulcer of left heel and midfoot with necrosis of muscle; E11.65 Type 2 diabetes mellitus with hyperglycemia; E11.22 Type 2 diabetes mellitus with diabetic chronic kidney disease; I13.0 Hypertensive heart and chronic kidney disease with heart failure and stage 1 through stage 4 chronic kidney disease, or unspecified chronic kidney disease; N18.4 Chronic kidney disease, stage 4 (severe); I50.32 Chronic diastolic (congestive) heart failure; E11.40 Type 2 diabetes mellitus with diabetic neuropathy, unspecified; E11.52 Type 2 diabetes mellitus with diabetic peripheral angiopathy with gangrene; I96 Gangrene, not elsewhere classified; F03.90 Unspecified dementia, unspecified severity, without behavioral disturbance, psychotic disturbance, mood disturbance, and anxiety; J44.9 Chronic obstructive pulmonary disease, unspecified; I48.91 Unspecified atrial fibrillation; E78.5 Hyperlipidemia, unspecified; E66.9 Obesity, unspecified; J96.10 Chronic respiratory failure, unspecified whether with hypoxia or hypercapnia; F41.9 Anxiety disorder, unspecified; I25.10 Atherosclerotic heart disease of native coronary artery without angina pectoris; K21.9 Gastro-esophageal reflux disease without esophagitis; F32.9 Major depressive disorder, single episode, unspecified; M19.90 Unspecified osteoarthritis, unspecified site; E78.00 Pure hypercholesterolemia, unspecified; G47.33 Obstructive sleep apnea (adult) (pediatric); Z99.2 Dependence on renal dialysis; Z85.51 Personal history of malignant neoplasm of bladder; Z79.4 Long term (current) use of insulin; Z68.35 Body mass index [BMI] 35.0-35.9, adult | CPT/HCPCS: 11042; 97605 ==

== ENCOUNTER → 2017-10-17 | Outpatient (CLI) | payer OTHER | END | disposition home or self-care (01) | LOC: PMGWOUND 13:20 | DX: E11.621 Type 2 diabetes mellitus with foot ulcer (principal); L97.423 Non-pressure chronic ulcer of left heel and midfoot with necrosis of muscle; F41.9 Anxiety disorder, unspecified; I25.10 Atherosclerotic heart disease of native coronary artery without angina pectoris; J44.9 Chronic obstructive pulmonary disease, unspecified; E11.52 Type 2 diabetes mellitus with diabetic peripheral angiopathy with gangrene; I96 Gangrene, not elsewhere classified; E11.22 Type 2 diabetes mellitus with diabetic chronic kidney disease; I13.0 Hypertensive heart and chronic kidney disease with heart failure and stage 1 through stage 4 chronic kidney disease, or unspecified chronic kidney disease; N18.4 Chronic kidney disease, stage 4 (severe); I50.32 Chronic diastolic (congestive) heart failure; K21.9 Gastro-esophageal reflux disease without esophagitis; E78.5 Hyperlipidemia, unspecified; F32.9 Major depressive disorder, single episode, unspecified; E66.9 Obesity, unspecified; G47.33 Obstructive sleep apnea (adult) (pediatric); E78.00 Pure hypercholesterolemia, unspecified; E11.40 Type 2 diabetes mellitus with diabetic neuropathy, unspecified; I48.91 Unspecified atrial fibrillation; F03.90 Unspecified dementia, unspecified severity, without behavioral disturbance, psychotic disturbance, mood disturbance, and anxiety; M19.90 Unspecified osteoarthritis, unspecified site; Z85.51 Personal history of malignant neoplasm of bladder; Z68.35 Body mass index [BMI] 35.0-35.9, adult; Z79.4 Long term (current) use of insulin; Z99.2 Dependence on renal dialysis | CPT/HCPCS: 11042; 97605 ==

== ENCOUNTER → 2017-10-24 | Outpatient (CLI) | payer OTHER | END | disposition home or self-care (01) | LOC: PMGWOUND 13:43 | DX: E11.621 Type 2 diabetes mellitus with foot ulcer (principal); L97.423 Non-pressure chronic ulcer of left heel and midfoot with necrosis of muscle; F41.9 Anxiety disorder, unspecified; I25.10 Atherosclerotic heart disease of native coronary artery without angina pectoris; J44.9 Chronic obstructive pulmonary disease, unspecified; E11.52 Type 2 diabetes mellitus with diabetic peripheral angiopathy with gangrene; I96 Gangrene, not elsewhere classified; E11.22 Type 2 diabetes mellitus with diabetic chronic kidney disease; I13.0 Hypertensive heart and chronic kidney disease with heart failure and stage 1 through stage 4 chronic kidney disease, or unspecified chronic kidney disease; N18.4 Chronic kidney disease, stage 4 (severe); I50.32 Chronic diastolic (congestive) heart failure; I48.91 Unspecified atrial fibrillation; E78.5 Hyperlipidemia, unspecified; E78.00 Pure hypercholesterolemia, unspecified; E66.9 Obesity, unspecified; E11.40 Type 2 diabetes mellitus with diabetic neuropathy, unspecified; F03.90 Unspecified dementia, unspecified severity, without behavioral disturbance, psychotic disturbance, mood disturbance, and anxiety; G47.33 Obstructive sleep apnea (adult) (pediatric); K21.9 Gastro-esophageal reflux disease without esophagitis; M19.90 Unspecified osteoarthritis, unspecified site; Z85.51 Personal history of malignant neoplasm of bladder; Z68.35 Body mass index [BMI] 35.0-35.9, adult; Z79.4 Long term (current) use of insulin; Z99.2 Dependence on renal dialysis | CPT/HCPCS: 11042 ==

== ENCOUNTER → 2017-10-31 | Outpatient (CLI) | payer OTHER | END | disposition home or self-care (01) | LOC: PMGWOUND 13:30 | DX: E11.621 Type 2 diabetes mellitus with foot ulcer (principal); L97.423 Non-pressure chronic ulcer of left heel and midfoot with necrosis of muscle; F41.9 Anxiety disorder, unspecified; I25.10 Atherosclerotic heart disease of native coronary artery without angina pectoris; J44.9 Chronic obstructive pulmonary disease, unspecified; E11.52 Type 2 diabetes mellitus with diabetic peripheral angiopathy with gangrene; I96 Gangrene, not elsewhere classified; E11.22 Type 2 diabetes mellitus with diabetic chronic kidney disease; I13.0 Hypertensive heart and chronic kidney disease with heart failure and stage 1 through stage 4 chronic kidney disease, or unspecified chronic kidney disease; N18.4 Chronic kidney disease, stage 4 (severe); I50.32 Chronic diastolic (congestive) heart failure; I48.91 Unspecified atrial fibrillation; E78.5 Hyperlipidemia, unspecified; E78.00 Pure hypercholesterolemia, unspecified; E66.9 Obesity, unspecified; E11.40 Type 2 diabetes mellitus with diabetic neuropathy, unspecified; F03.90 Unspecified dementia, unspecified severity, without behavioral disturbance, psychotic disturbance, mood disturbance, and anxiety; G47.33 Obstructive sleep apnea (adult) (pediatric); K21.9 Gastro-esophageal reflux disease without esophagitis; M19.90 Unspecified osteoarthritis, unspecified site; Z85.51 Personal history of malignant neoplasm of bladder; Z68.35 Body mass index [BMI] 35.0-35.9, adult; Z79.4 Long term (current) use of insulin; Z99.2 Dependence on renal dialysis | CPT/HCPCS: 11042 ==

== ENCOUNTER 2018-01-13 07:34 | Outpatient (CLI) | payer OTHER ==
[2018-01-13] VITALS (7 sets, daily range): BP systolic 93–125; BP diastolic 46–52
[~2018-01-13] VITALS: Ht 170.2 cm; Wt 93.0 kg
[~2018-01-13 07:34] MED LIST: ALBU2.5V14 NEB; ASCO500T2 PO; ASPI-482 PO; ASPI-612 PO; CARV12.52 PO; CARV3.12 PO; CHOL100013 PO; FERR325T14 PO; FURO80TA72 PO; GABA-585 PO; INSU100I27 SQ; LACT1CAP24 PO; LOSA100T2 PO; MAGN64TA6 PO; MAGN71.5 PO; METF10007 PO; OMEP20TA8 PO; OXYB10TA PO; OXYB10TA7 PO; OXYC1TAB7 PO; OXYC1TAB8 PO; POTA20TA4 PO; PREN1TAB13 PO; SERT50TA PO; SIMV40TA3 PO; SPIR25TA5 PO; VANC1VIA3 IV; WARF-31 PO; ZINC220C5 PO
[2018-01-13] MEDS ORDERED: TAMS0.4C97 PO (08:16)
[2018-01-13] MEDS ORDERED: FLUT9.9S NS (08:16)
[2018-01-13 08:26] LABS: BASO # 0.1 x10^3/uL (0.0-0.2); BASO % 1 % (0-3); EOS # 0.1 x10^3/uL (0.0-0.7); EOS % 1 % (0-3); HEMATOCRIT 34.1 % (39.0-53.0); HEMOGLOBIN 11.4 g/dL (13.0-17.5); LYMPH # 0.6 x10^3/uL (1.0-4.8); LYMPH % 3 % (24-48); MEAN CORPUSCULAR HEMOGLOBIN 28 pg (25-35); MEAN CORPUSCULAR HGB CONC 34 g/dL (31-37); MEAN CORPUSCULAR VOLUME 83 fL (79-100); MONO # 1.5 x10^3/uL (0.0-1.1); MONO % 9 % (0-9); NEUT # 14.7 x10^3uL (1.8-7.7); NEUT % 87 % (31-73); PLATELET COUNT 191 x10^3/uL (140-400); RED BLOOD COUNT 4.12 x10^6/uL (4.30-5.70); RED CELL DISTRIBUTION WIDTH 16.1 % (11.5-14.5)
[2018-01-13 08:38] LABS: PROTHROMBIN TIME PATIENT 17.4 SEC (11.7-14.0)
[2018-01-13] MEDS ORDERED: IOHEXOL 240 MG/ML 50ML VIAL. ONE (08:40)
[2018-01-13] MEDS ORDERED: LIDOCAINE WITH 8.4% SOD BICARB 3 ML DISP.SYRIN. ONE (08:40)
[2018-01-13] MEDS ORDERED: LIDOCAINE 2% 20 ML VIAL. ONE (08:42)
[2018-01-13] MEDS ORDERED: fentaNYL PF VIAL 100 MCG/2 ML VIAL ONE (08:51)
[2018-01-13] MEDS ORDERED: MIDAZOLAM HCL/PF 2 MG/2 ML VIAL. ONE (08:51)
[2018-01-13] MEDS ORDERED: IOHEXOL 240 MG/ML 50ML VIAL. IJ ONE (09:15)
[2018-01-13] MEDS ORDERED: MIDAZOLAM HCL/PF 2 MG/2 ML VIAL. IV ONE (09:15)
[2018-01-13] MEDS ORDERED: fentaNYL PF VIAL 100 MCG/2 ML VIAL IV ONE (09:15)
[2018-01-13] MEDS ORDERED: LIDOCAINE WITH 8.4% SOD BICARB 3 ML DISP.SYRIN. IJ ONE (09:15)
--- NOTE | 2018-01-13 09:20 | PDOC ---
Exam Lead Bi Developer Lead Bi Developer Marv Spreader Operator Automatic Spreader Operator Automatic Iam Pre-Procedure Diagnosis Pre-Procedure Diagnosis Bladder outlet obstruction Post-Procedure Diagnosis Post-Procedure Diagnosis Same Procedure Performed Procedure Performed Suprapubic catheter placement Type of Anesthesia Type of Anesthesia Mod Sedation Estimated Blood Loss EBL: 1 Specimens Specimans None Drain/Tubes Drains/Tubes 20 Fr [place] suprapubic Condition of Patient Condition of Patient Stable Disposition Disposition To recovery area. Stable. Expect DC BALBIR HELLER MD Jan 13, 2018 09:20
--- NOTE | 2018-01-13 09:23 | PDOC ---
MODERATE SEDATION ASSESSMENT RISKS/ALTERNATIVES Risks/Alternatives Risks and alternatives of this type of sedation and procedure discussed with: RISK/ALTERNATIVES: Patient H & P ON CHART H & P H & P on chart and reviewed for co-morbid conditions and appropriate labs. H&P ON CHART: Yes STATUS PREG STATUS ASSESSED: Yes MEDS/ALLERGIES REVIEWED Meds/Allergies Reviewed Medications and Allergies including time and route of recently administered narcotics and sedatives. MEDS/ALLERGIES REVIEWED: Yes ASA RATING ASA RATING: II AIRWAY ASSESSMENT Airway Assessment Airway patency, oral function limitations, presence of caps, crowns, dentures, partials, and ability to extend neck assessed. AIRWAY ASSESSMENT: Yes MALLAMPATI SCORE MALLAMPATI SCORE: II PRE-SEDATION ASSESSMENT PRE-SEDATION ASSESSMENT: Yes BALBIR HELLER MD Jan 13, 2018 09:23
[2018-01-13] MEDS ORDERED: CONTRAST GIVEN. MC PRN (09:30)
[2018-01-13 10:30] LABS: % BANDS 5 % (0-9); % EOS 2 % (0-5); % LYMPHS 2 % (24-48); % MONOS 6 % (0-10); % SEGS 85 % (35-66)
[2018-01-13 10:31] LABS: PLT ESTIMATE ADEQUATE (ADEQUATE)
--- NOTE | 2018-01-13 14:34 | RAD ---
Suprapubic catheter placement 01/13/2018 Indication: Urinary retention Comparison study: None Discussion: The risks and benefits of the procedure were discussed the patient and his customer success representative. Informed consent was obtained. The patient was brought to fluoroscopy suite and placed in supine position. A timeout procedure was performed. The anterior abdomen was prepped and draped using sterile barrier technique. All elements of maximal sterile barrier technique including the use of a cap, mask, sterile gown, sterile gloves, large sterile sheet, appropriate hand hygiene, and 2% chlorhexidine for cutaneous antisepsis (or acceptable alternative antiseptic per current guidelines) were followed for this procedure. Saline was infused into the bladder via pre-existing Butts catheter. Ultrasound evaluation demonstrates a distended bladder. 1% lidocaine without epinephrine was administered to the skin and subcutaneous tissues overlying the bladder a few centimeters above the pubic symphysis. Under direct ultrasound guidance a 5 [place] needle was advanced into the bladder. Urine was freely aspirated. An Amplatz guidewire was advanced into the bladder. An 8 mm balloon was used to dilate the tract. A sheath was advanced over the balloon into the bladder. The balloon was removed. [id number] 20 [place] catheter was advanced into the bladder. The retention balloon was inflated with sterile water. Catheter position was confirmed with administration of contrast. The sheath was removed. The catheter was secured in place. Sterile dressings were applied. No immediate complications were identified. Fluoroscopy time: 1 MIN Dose area product: 9 Gycm2 The procedures performed under conscious sedation including continuous cardiopulmonary monitoring via a dedicated sedation nurse. [id number] sedation time: 30 minutes Impression: Suprapubic catheter placement
[2018-01-24] MEDS ORDERED: CIPR250T30 PO (11:33)
[2018-01-24] MEDS ORDERED: LIDO700A39 TD (11:33)
[2018-01-24] MEDS ORDERED: DOXY100T PO (11:33)
[2018-01-24] MEDS ORDERED: OXYB5TAB7 PO (11:33)
[2018-01-24] MEDS ORDERED: INSU100I13 SQ (11:33)
[2018-01-24] MEDS ORDERED: GUAI600T47 PO (11:33)
[2018-01-24] MEDS ORDERED: HYDR-2758 PO (11:33)
[2018-01-24] MEDS ORDERED: INSU100I11 SQ (11:33)
[2018-01-24] MEDS ORDERED: ALBU2.5V5 NEB (11:33)
[2018-01-31] MEDS ORDERED: CEFTRIAXONE SODIUM IVP (13:14)
== END 2018-01-13 12:00 | disposition home or self-care (01) ==
LOC: INTRAD 07:34
PROVIDERS: ATTEND Urology
DX: R33.9 Retention of urine, unspecified (principal); E16.2 Hypoglycemia, unspecified; J44.9 Chronic obstructive pulmonary disease, unspecified; I10 Essential (primary) hypertension; E78.5 Hyperlipidemia, unspecified; E11.9 Type 2 diabetes mellitus without complications; Z79.84 Long term (current) use of oral hypoglycemic drugs; Z95.0 Presence of cardiac pacemaker
CPT/HCPCS: 36415; 51102; 76942; 85007; 85610; 85730; C1769; C1892; J0690; J2250; J3010; Q9966; 51600; 85025; 99152; 99153